=== PATIENT | female | born 1960 | race African-American/Black ===

== ENCOUNTER 2021-07-12 20:41 | Inpatient (IN) ==
[2021-07-12] MEDS ORDERED: SODIUM CHLORIDE 0.9% 1,000 ML IV STA (21:43)
[2021-07-12 22:44] LABS: Basophils # 0.1 10*3/uL (0.0-0.2); Basophils % 0.7 % (0.0-0.8); Eosinophils # 0.1 10*3/uL (0.0-0.87); Immature Granulocytes % 0.6 %; Immature Granulocytes Absolute 0.04 #; Lymphocytes # 1.7 10*3/uL (1.4-4.0); Lymphocytes % 24.9 % (21.3-54.2); Monocytes % 9.4 % (1.7-12.7); NRBC # 0.03 10*3/uL; Neutrophils % 63.4 % (38.7-73.9); Platelet Count 331 T/CUMM (130-400); Red Blood Count 3.64 MC/CUMM (3.8-5.5); Red Cell Distribution Width 20.9 % (9.3-17.3); White Blood Count 6.9 T/CUMM (4-12)
[2021-07-12 22:45] LABS: Hematocrit 22.2 VOL% (35.7-47.0)
[2021-07-12 22:52] LABS: Alanine Aminotransferase 17 U/L (13-56); Albumin 2.5 G/DL (3.4-5.0); Alkaline Phosphatase 86 U/L (45-117); Aspartate Amino Transferase 23 U/L (0-37); Blood Urea Nitrogen 9 MG/DL (7-18); Calcium 8.4 MG/DL (8.5-10.1); Carbon Dioxide 22 MMOL/L (21-32); Estimated Glom Filtration Rate 80 ML/MIN; Glucose 116 MG/DL (74-106); Osmolality,Calculated 265.4 MOS/KG (273-304); Potassium 2.9 MMOL/L (3.5-5.1); Sodium 133 MMOL/L (136-145); Total Protein 7.2 G/DL (6.4-8.2)
[2021-07-12] MEDS ORDERED: DEXT 5% NACL 0.45% KCL 40 MEQ 40 MEQ/1,000 ML BAG IV SCH (23:00)
[2021-07-12 23:11] LABS: Hypochromasia 2+; Microcytosis 3+; Platelet Estimate Normal; Target Cells Few
[2021-07-12 23:57] LABS: Bacteria,Urine Many /HPF (Few); Blood, Urine Small mg/dL (Negative); Glucose,Urine (UA) Negative (Negative); Ketones,Urine 5 mg/dL (Negative); Mucus,Urine Moderate /LPF (Occasional); Nitrite,Urine Negative (Negative); Protein,Urine 30 MG/DL; RBC,Urine 3 /HPF (0-4); Squamous Epithelial Cell,Urine Occasional /HPF (0-10); Urine Appearance CLOUDY (Clear); Urine Color Amber (Yellow); Urine Specific Gravity 1.017 (1.001-1.035)
[2021-07-12 23:58] LABS: Bilirubin,Urine Small mg/dL (Negative)
[2021-07-13] MEDS ORDERED: LEVOFLOXACIN INJ 500 MG/100 ML PREMIX IV ONE (00:36)
[2021-07-13] MEDS: DEXT 5% NACL 0.45% KCL 40 MEQ 40 MEQ/1,000 ML BAG IV SCH ×2 (00:45→09:00)
[2021-07-13] MEDS ORDERED: ONDANSETRON 4 MG/2 ML VIAL IV PRN (02:34)
[2021-07-13] MEDS ORDERED: SODIUM CHLORIDE 0.9% 1,000 ML IV PRN (03:00)
[2021-07-13] MEDS: POTASSIUM CHLORIDE INJ 10 MEQ in SODIUM CHLORIDE 0.9% 1,000 ML IV SCH (05:50)
[2021-07-13] MEDS: BISACODYL 5 MG TABLET PO SCH ×3 (08:45→23:08)
[2021-07-13] MEDS ORDERED: PANTOPRAZOLE 40 MG TABLET PO SCH (09:00)
[2021-07-13] MEDS: POTASSIUM CHLORIDE 20 MEQ TABLET PO SCH ×3 (09:05→20:48)
[2021-07-13] MEDS: PANTOPRAZOLE 40 MG VIAL IV SCH ×2 (09:05→20:48)
[2021-07-13] MEDS ORDERED: MAGNESIUM SULF RIDER 4 GM/100 ML PREMIX IV PRN (15:30)
[2021-07-13] MEDS ORDERED: MAGNESIUM SULF RIDER 2 GM/50 ML PREMIX IV PRN (15:30)
[2021-07-13] MEDS ORDERED: POLYETHYLENE GLYCOL POWDER 255 GM BOTTLE PO ONE (18:00)
[2021-07-13] MEDS ORDERED: MAGNESIUM CITRATE 300 ML BOTTLE PO ONE (21:00)
[2021-07-13 21:21] LABS: Hematocrit 34.1 VOL% (35.7-47.0)
[2021-07-13 21:26] LABS: Hemoglobin 10.5 GM/DL (12.0-16.0)
[2021-07-14] MEDS: POTASSIUM CHLORIDE INJ 10 MEQ in SODIUM CHLORIDE 0.9% 1,000 ML IV SCH (01:19)
[2021-07-14 02:18] LABS: Basophils # 0.1 10*3/uL (0.0-0.2); Basophils % 0.7 % (0.0-0.8); Eosinophils # 0.1 10*3/uL (0.0-0.87); Eosinophils % 0.5 % (0.00-10.9); Hematocrit 36.1 VOL% (35.7-47.0); Immature Granulocytes % 0.9 %; Immature Granulocytes Absolute 0.08 #; Lymphocytes # 1.7 10*3/uL (1.4-4.0); Lymphocytes % 18.5 % (21.3-54.2); Mean Corpuscular HGB Conc 30.5 GM/DL (32-36); Mean Corpuscular Volume 71.1 FL (87-102); Mean Platelet Volume 8.6 FL (9.6-12.0); Monocytes % 6.9 % (1.7-12.7); NRBC # 0.07 10*3/uL; Neutrophils % 72.5 % (38.7-73.9); Platelet Count 225 T/CUMM (130-400); Red Blood Count 5.08 MC/CUMM (3.8-5.5); Red Cell Distribution Width 28.9 % (9.3-17.3); White Blood Count 9.2 T/CUMM (4-12)
[2021-07-14] MEDS: LEVOFLOXACIN INJ 500 MG/100 ML PREMIX IV SCH (02:19)
[2021-07-14 02:43] LABS: Albumin 2.3 G/DL (3.4-5.0); Bilirubin,Total 6.1 MG/DL (0.20-1.00); Calcium 8.4 MG/DL (8.5-10.1); Osmolality,Calculated 257.9 MOS/KG (273-304); Potassium 3.4 MMOL/L (3.5-5.1); Total Protein 7.3 G/DL (6.4-8.2)
[2021-07-14 03:10] LABS: Hypochromasia Slight; Microcytosis 1+; Platelet Estimate Normal
[2021-07-14 07:32] LABS: % Iron Saturation 68.9 % (18-50); Ferritin 308.3 ng/mL (8-252)
[2021-07-14 07:54] LABS: Folate 7.71 NG/ML (5.38-24.0)
[2021-07-14] MEDS ORDERED: ALBUTEROL INHALER 18 GM INH ONE (08:16)
[2021-07-14] MEDS ORDERED: propofoL 200 MG/20 ML VIAL IV ONE (09:58)
[2021-07-14] MEDS ORDERED: LIDOCAINE 2% 5 ML VIAL ONE (09:58)
[2021-07-14] MEDS ORDERED: ETOMIDATE 20 MG/10 ML VIAL IV ONE (09:58)
[2021-07-14] MEDS ORDERED: ROCURONIUM 50 MG/5 ML VIAL IV ONE ×2 (10:33→11:06)
[2021-07-14] MEDS ORDERED: SEVOFLURANE 1 UNIT/15 MINUTE INH ONE (10:33)
[2021-07-14] MEDS ORDERED: PHENYLEPHRINE 1 MG/10 ML SYRINGE IV ONE ×2 (10:33→11:17)
[2021-07-14] MEDS ORDERED: SUCCINYLCHOLINE 200 MG/10 ML VIAL ONE ×2 (10:33→11:06)
[2021-07-14] MEDS ORDERED: METOPROLOL TARTRATE 5 MG/5 ML VIAL IV ONE ×2 (11:38→11:42)
[2021-07-14] MEDS: PANTOPRAZOLE 40 MG VIAL IV SCH ×2 (11:58→21:16)
[2021-07-14 12:10] LABS: ABG Base Excess -6.5 MMOL/L (-2.5-2.5); ABG HCO3 19.1 MMOL/L (20-26); ABG Oxygen Saturation 99.8 % (95-100); ABG PCO2 24.5 MM HG (35-48); ABG PH 7.435 (7.35-7.45)
[2021-07-14 12:22] LABS: Hematocrit 34.5 VOL% (35.7-47.0); Hemoglobin 10.3 GM/DL (12.0-16.0)
[2021-07-14] MEDS: SODIUM CHLOR 0.9% KCL 40 MEQ 40 MEQ/1,000 ML BAG IV SCH (14:18)
[2021-07-14 14:44] LABS: Basophils % 0.3 % (0.0-0.8); Eosinophils % 0.3 % (0.00-10.9); Hematocrit 33.4 VOL% (35.7-47.0); Lymphocytes # 1.3 10*3/uL (1.4-4.0); Lymphocytes % 12.8 % (21.3-54.2); Mean Corpuscular HGB Conc 29.9 GM/DL (32-36); Mean Platelet Volume 9.1 FL (9.6-12.0); Monocytes % 5.5 % (1.7-12.7); NRBC # 0.06 10*3/uL; Neutrophils % 80.1 % (38.7-73.9); Platelet Count 197 T/CUMM (130-400); Red Blood Count 4.64 MC/CUMM (3.8-5.5); Red Cell Distribution Width 28.9 % (9.3-17.3); White Blood Count 10.3 T/CUMM (4-12)
[2021-07-14] MEDS ORDERED: DEXMEDETOMIDINE 200 MCG in SODIUM CHLORIDE 0.9% 48 ML IV PRN (15:06)
[2021-07-14 15:13] LABS: Albumin 2.2 G/DL (3.4-5.0); Bilirubin,Total 4.4 MG/DL (0.20-1.00); Osmolality,Calculated 263.5 MOS/KG (273-304); Potassium 3.1 MMOL/L (3.5-5.1); Total Protein 6.4 G/DL (6.4-8.2)
[2021-07-14] MEDS: CLINDAMYCIN INJ 600 MG/50 ML PREMIX IV SCH ×2 (15:48→23:32)
[2021-07-14] MEDS: POTASSIUM CHLORIDE RIDER 10 MEQ/100 ML PREMIX IV PRN ×4 (15:48→18:51)
[2021-07-14 16:11] LABS: ABG Base Excess -4.6 MMOL/L (-2.5-2.5); ABG HCO3 20.6 MMOL/L (20-26); ABG Oxygen Saturation 99.6 % (95-100); ABG PCO2 27.4 MM HG (35-48); ABG PH 7.437 (7.35-7.45); ABG TCO2 16.7 MMOL/L (23-27); Allen Test Positive; Pt O2 Delivery Device Ventilator
[2021-07-15] MEDS: LEVOFLOXACIN INJ 500 MG/100 ML PREMIX IV SCH (03:45)
[2021-07-15 04:12] LABS: ABG Base Excess -3.9 MMOL/L (-2.5-2.5); ABG HCO3 21.2 MMOL/L (20-26); ABG Oxygen Saturation 99.7 % (95-100); ABG PCO2 22.3 MM HG (35-48); ABG TCO2 16.2 MMOL/L (23-27)
[2021-07-15] MEDS: SODIUM CHLOR 0.9% KCL 40 MEQ 40 MEQ/1,000 ML BAG IV SCH ×2 (05:00→19:26)
[2021-07-15 06:25] LABS: Basophils # 0.1 10*3/uL (0.0-0.2); Basophils % 0.7 % (0.0-0.8); Eosinophils # 0.1 10*3/uL (0.0-0.87); Eosinophils % 0.7 % (0.00-10.9); Hematocrit 35.6 VOL% (35.7-47.0); Immature Granulocytes % 0.8 %; Immature Granulocytes Absolute 0.08 #; Lymphocytes # 1.9 10*3/uL (1.4-4.0); Lymphocytes % 20.1 % (21.3-54.2); Mean Corpuscular HGB Conc 28.9 GM/DL (32-36); Mean Corpuscular Volume 76.1 FL (87-102); Mean Platelet Volume 9.2 FL (9.6-12.0); NRBC # 0.08 10*3/uL; Neutrophils % 72.7 % (38.7-73.9); Platelet Count 139 T/CUMM (130-400); Red Blood Count 4.68 MC/CUMM (3.8-5.5); Red Cell Distribution Width 29.7 % (9.3-17.3); White Blood Count 9.6 T/CUMM (4-12)
[2021-07-15 06:27] LABS: Hemoglobin 10.3 GM/DL (12.0-16.0)
[2021-07-15 06:37] LABS: Bilirubin,Total 3.5 MG/DL (0.20-1.00); Calcium 8.3 MG/DL (8.5-10.1); Osmolality,Calculated 257.8 MOS/KG (273-304); Potassium 4.5 MMOL/L (3.5-5.1); Total Protein 6.4 G/DL (6.4-8.2)
[2021-07-15 07:18] LABS: Hepatitis B Core IgM Quant 0.18 Index; Hepatitis B Surface Ag Quant < 0.10 Index; Hepatitis B Surface Ag Result Non-Reactive (NonReactive); Hepatitis C Virus Ab Quant 0.05 Index; Hepatitis C Virus Ab Result Non-Reactive (NonReactive)
[2021-07-15] MEDS: CLINDAMYCIN INJ 600 MG/50 ML PREMIX IV SCH ×3 (07:35→20:25)
[2021-07-15] MEDS: PANTOPRAZOLE 40 MG VIAL IV SCH ×2 (08:01→20:23)
[2021-07-15] MEDS: cefTRIAXone 1,000 MG in SODIUM CHLORIDE 0.9% 100 ML IV SCH (10:37)
[2021-07-15 14:56] LABS: Calcium 7.5 MG/DL (8.5-10.1); Osmolality,Calculated 268.4 MOS/KG (273-304); Potassium 4.3 MMOL/L (3.5-5.1)
[2021-07-16] MEDS: CLINDAMYCIN INJ 600 MG/50 ML PREMIX IV SCH ×3 (05:01→20:16)
[2021-07-16 05:33] LABS: Basophils % 0.7 % (0.0-0.8); Eosinophils # 0.1 10*3/uL (0.0-0.87); Eosinophils % 1.1 % (0.00-10.9); Hematocrit 25.9 VOL% (35.7-47.0); Hemoglobin 7.9 GM/DL (12.0-16.0); Immature Granulocytes % 0.7 %; Immature Granulocytes Absolute 0.04 #; Lymphocytes # 1.7 10*3/uL (1.4-4.0); Lymphocytes % 30.4 % (21.3-54.2); Mean Corpuscular HGB Conc 30.5 GM/DL (32-36); Mean Corpuscular Volume 72.5 FL (87-102); Monocytes % 6.7 % (1.7-12.7); NRBC # 0.04 10*3/uL; Neutrophils % 60.4 % (38.7-73.9); Platelet Count 110 T/CUMM (130-400); Red Blood Count 3.57 MC/CUMM (3.8-5.5); Red Cell Distribution Width 30.3 % (9.3-17.3); White Blood Count 5.6 T/CUMM (4-12)
[2021-07-16 05:43] LABS: Albumin 1.9 G/DL (3.4-5.0); Bilirubin,Total 2.4 MG/DL (0.20-1.00); Calcium 7.8 MG/DL (8.5-10.1); Osmolality,Calculated 262.4 MOS/KG (273-304); Potassium 4.6 MMOL/L (3.5-5.1); Total Protein 5.6 G/DL (6.4-8.2)
[2021-07-16 06:05] LABS: Band Neutrophils 3 % (0-10); Eosinophils 2 % (0-10); Lymphocytes 31 % (20-55); Platelet Estimate Adequate; Segmented Neutrophils 56 % (50-85); Total Cells Counted 100
[2021-07-16 06:06] LABS: Anisocytosis 2+; Burr Cells 1+; Target Cells 1+
[2021-07-16 08:45] LABS: Hematocrit 26.9 VOL% (35.7-47.0)
[2021-07-16] MEDS: SODIUM CHLOR 0.9% KCL 40 MEQ 40 MEQ/1,000 ML BAG IV SCH (10:38)
[2021-07-16] MEDS: PANTOPRAZOLE 40 MG VIAL IV SCH ×2 (11:14→20:16)
[2021-07-16] MEDS: cefTRIAXone 1,000 MG in SODIUM CHLORIDE 0.9% 100 ML IV SCH (11:19)
[2021-07-17] MEDS: CLINDAMYCIN INJ 600 MG/50 ML PREMIX IV SCH ×3 (04:36→21:26)
[2021-07-17 04:53] LABS: Basophils # 0.1 10*3/uL (0.0-0.2); Basophils % 1.2 % (0.0-0.8); Eosinophils # 0.1 10*3/uL (0.0-0.87); Hematocrit 26.1 VOL% (35.7-47.0); Hemoglobin 7.8 GM/DL (12.0-16.0); Immature Granulocytes % 0.7 %; Immature Granulocytes Absolute 0.04 #; Lymphocytes % 33.7 % (21.3-54.2); Mean Corpuscular HGB Conc 29.9 GM/DL (32-36); Mean Corpuscular Volume 72.1 FL (87-102); Monocytes % 6.8 % (1.7-12.7); NRBC # 0.03 10*3/uL; Neutrophils % 56.6 % (38.7-73.9); Platelet Count 108 T/CUMM (130-400); Red Blood Count 3.62 MC/CUMM (3.8-5.5); Red Cell Distribution Width 31.2 % (9.3-17.3); White Blood Count 5.9 T/CUMM (4-12)
[2021-07-17 05:08] LABS: Calcium 7.8 MG/DL (8.5-10.1); Osmolality,Calculated 255.8 MOS/KG (273-304); Potassium 4.1 MMOL/L (3.5-5.1)
[2021-07-17 05:22] LABS: Eosinophils 5 % (0-10); Hypochromasia 2+; Lymphocytes 38 % (20-55); Nucleated Red Blood Cells 1 (0-5); Segmented Neutrophils 51 % (50-85); Total Cells Counted 100
[2021-07-17 05:23] LABS: Acanthocytes Few; Anisocytosis 1+; Microcytosis 1+; Spherocytes Slight; Target Cells Slight
[2021-07-17 05:24] LABS: Platelet Estimate Adequate
[2021-07-17] MEDS ORDERED: SODIUM CHLORIDE 0.9% 1,000 ML IV PRN (08:42)
[2021-07-17] MEDS: PANTOPRAZOLE 40 MG VIAL IV SCH ×2 (09:28→21:26)
[2021-07-17] MEDS: cefTRIAXone 1,000 MG in SODIUM CHLORIDE 0.9% 100 ML IV SCH (11:08)
[2021-07-18] MEDS: CLINDAMYCIN INJ 600 MG/50 ML PREMIX IV SCH ×3 (04:45→20:55)
[2021-07-18 06:40] LABS: Basophils # 0.1 10*3/uL (0.0-0.2); Basophils % 1.3 % (0.0-0.8); Eosinophils # 0.1 10*3/uL (0.0-0.87); Eosinophils % 1.3 % (0.00-10.9); Hematocrit 28.4 VOL% (35.7-47.0); Hemoglobin 8.8 GM/DL (12.0-16.0); Immature Granulocytes % 0.7 %; Immature Granulocytes Absolute 0.03 #; Lymphocytes # 1.6 10*3/uL (1.4-4.0); Lymphocytes % 36.9 % (21.3-54.2); Mean Corpuscular Volume 71.9 FL (87-102); Mean Platelet Volume 9.4 FL (9.6-12.0); Neutrophils % 50.8 % (38.7-73.9); Platelet Count 87 T/CUMM (130-400); Red Blood Count 3.95 MC/CUMM (3.8-5.5); Red Cell Distribution Width 30.8 % (9.3-17.3); White Blood Count 4.5 T/CUMM (4-12)
[2021-07-18 06:54] LABS: Calcium 7.9 MG/DL (8.5-10.1); Osmolality,Calculated 252.2 MOS/KG (273-304); Potassium 3.5 MMOL/L (3.5-5.1)
[2021-07-18 07:07] LABS: Platelet Estimate Decreased
[2021-07-18 07:08] LABS: Anisocytosis 2+; Burr Cells 1+; Hypochromasia 1+; Poikilocytosis 1+; Target Cells 1+; Tear Drop Cells Few
[2021-07-18] MEDS: PANTOPRAZOLE 40 MG VIAL IV SCH ×2 (08:50→20:55)
[2021-07-18] MEDS: cefTRIAXone 1,000 MG in SODIUM CHLORIDE 0.9% 100 ML IV SCH (10:14)
[2021-07-18] MEDS ORDERED: SODIUM CHLORIDE 0.9% 500 ML IV ONE (11:18)
[2021-07-19] MEDS: CLINDAMYCIN INJ 600 MG/50 ML PREMIX IV SCH ×3 (05:17→20:49)
[2021-07-19 05:49] LABS: Calcium 8.7 MG/DL (8.5-10.1); Osmolality,Calculated 263.4 MOS/KG (273-304); Potassium 3.4 MMOL/L (3.5-5.1)
[2021-07-19] MEDS ORDERED: POTASSIUM CHLORIDE 10 MEQ TABLET PO ONE (08:30)
[2021-07-19] MEDS: PANTOPRAZOLE 40 MG VIAL IV SCH ×2 (09:27→20:49)
[2021-07-19] MEDS: cefTRIAXone 1,000 MG in SODIUM CHLORIDE 0.9% 100 ML IV SCH (10:51)
[2021-07-20] MEDS: CLINDAMYCIN INJ 600 MG/50 ML PREMIX IV SCH (05:25)
[2021-07-20 05:33] LABS: Calcium 8.9 MG/DL (8.5-10.1); Osmolality,Calculated 265.4 MOS/KG (273-304); Potassium 3.6 MMOL/L (3.5-5.1)
[2021-07-20] MEDS: cefTRIAXone 1,000 MG in SODIUM CHLORIDE 0.9% 100 ML IV SCH (10:30)
[2021-07-20] MEDS: PANTOPRAZOLE 40 MG VIAL IV SCH ×2 (12:54→21:02)
[2021-07-20] MEDS: CEFUROXIME 500 MG TABLET PO SCH (21:02)
[2021-07-21 06:54] LABS: Basophils # 0.1 10*3/uL (0.0-0.2); Basophils % 0.5 % (0.0-0.8); Eosinophils # 0.1 10*3/uL (0.0-0.87); Eosinophils % 0.5 % (0.00-10.9); Hemoglobin 8.2 GM/DL (12.0-16.0); Immature Granulocytes % 0.8 %; Immature Granulocytes Absolute 0.09 #; Lymphocytes % 9.2 % (21.3-54.2); Mean Corpuscular HGB Conc 31.5 GM/DL (32-36); Mean Corpuscular Volume 72.8 FL (87-102); Mean Platelet Volume 9.4 FL (9.6-12.0); Monocytes % 8.4 % (1.7-12.7); Neutrophils % 80.6 % (38.7-73.9); Platelet Count 144 T/CUMM (130-400); Red Blood Count 3.57 MC/CUMM (3.8-5.5)
[2021-07-21 07:15] LABS: Calcium 8.9 MG/DL (8.5-10.1); Osmolality,Calculated 260.7 MOS/KG (273-304); Potassium 3.6 MMOL/L (3.5-5.1)
[2021-07-21 08:23] VITALS: BP 109/89
[2021-07-21] MEDS: PANTOPRAZOLE 40 MG VIAL IV SCH (08:39)
[2021-07-21] MEDS: CEFUROXIME 500 MG TABLET PO SCH (08:40)
== END 2021-07-21 10:11 | disposition hospice, home (50) | DRG 374 ==
LOC: EDUNIT# → EDBD → N.ED 20:41 → N.EDINP 07-13 03:07 → SUATTDRO 07-13 03:07 → N.2W 07-13 14:26 → N.ICU 07-14 11:19 → N.2W 07-15 15:30 → N.EDINP 07-19 10:40 → N.2E 07-19 10:42
PROVIDERS: ADMIT Internal Medicine; ATTEND Internal Medicine